=== PATIENT | female | born 1960 | race Caucasian/White ===

== ENCOUNTER 2017-12-02 06:50 | Emergency (ER) | payer BC ==
[~2017-12-02] VITALS: Ht 180.3 cm; Wt 86.6 kg
[~2017-12-02 06:50] MED LIST: OMEPRAZOLE40 MG
[2017-12-02] MEDS ORDERED: TRAMADOL HCL 50 MG TAB PO ONE (07:30)
[2017-12-02] MEDS ORDERED: PREDNISONE 20 MG TAB PO ONE (07:30)
[2017-12-02] MEDS ORDERED: KETOROLAC TROMETHAMINE 30 MG/ML VIAL IM STA (07:51)
[2017-12-02 08:41] VITALS: BP 106/75
== END 2017-12-02 08:55 | disposition home or self-care (01) ==
LOC: FSED 06:50
DX: S76.212A Strain of adductor muscle, fascia and tendon of left thigh, initial encounter (principal); K57.90 Diverticulosis of intestine, part unspecified, without perforation or abscess without bleeding; D18.09 Hemangioma of other sites; X50.0XXA Overexertion from strenuous movement or load, initial encounter
CPT/HCPCS: 72192; 80048; 99283; J1885